=== PATIENT | male | born 1990 | race Hispanic/Latino ===

== ENCOUNTER 2022-05-05 21:26 | Emergency (ER) | payer SELFPAY ==
[~2022-05-05] VITALS: Ht 170.2 cm; Wt 86.2 kg
[2022-05-05] MEDS ORDERED: PROVENTIL HFA6.7 GM INH (23:03)
[2022-05-05] MEDS ORDERED: GUAIFEN-CODEINE5 ML PO (23:07)
[2022-05-05 23:27] VITALS: BP 148/75
== END 2022-05-05 23:27 | disposition home or self-care (01) ==
LOC: FSED 21:36
DX: R05.9 Cough, unspecified (principal); J98.01 Acute bronchospasm; B34.9 Viral infection, unspecified; F17.210 Nicotine dependence, cigarettes, uncomplicated
CPT/HCPCS: 87400; 99282